=== PATIENT | male | born 1955 | race Caucasian/White ===

== ENCOUNTER 2017-07-31 09:20 | Day surgery (SDC) | payer BC ==
[~2017-07-31] VITALS: Ht 188 cm; Wt 94.2 kg
[2017-07-31] MEDS ORDERED: SYNTHROID 0.10.15 MG PO (09:41)
[2017-07-31] MEDS ORDERED: PROZAC 20MG20 MG PO (09:41)
[2017-07-31 09:56] VITALS: BP 127/82; PULSE 65; TEMP 98.1
[2017-07-31 11:22] VITALS: BP 116/70; PULSE 63; TEMP 98.3
[2017-07-31 11:35] VITALS: BP 120/63; PULSE 60
[2017-07-31] MEDS ORDERED: BENEFIBER (11:37)
[2017-07-31 11:50] VITALS: BP 120/63; PULSE 64
[2017-07-31 12:05] VITALS: BP 118/67; PULSE 62
[2017-07-31 12:29] VITALS: BP 101/78; PULSE 54
== END 2017-07-31 12:31 | disposition home or self-care (01) ==
LOC: SDCO 09:20
DX: K59.00 Constipation, unspecified (principal); K64.0 First degree hemorrhoids; K92.1 Melena
CPT/HCPCS: J2250; J2405; J3010; J7030

== ENCOUNTER → 2018-08-31 | Outpatient (CLI) | payer BC ==
[~2018-08-31] MED LIST: BENEFIBER; PROZAC 20MG20 MG PO; SYNTHROID 0.10.15 MG PO
[2018-08-31 17:15] LABS: BASO % 0.6 % (0.0-2.0); EOS # 0.4 (0.0-0.7); GRAN # 3.1 (1.4-6.5); GRAN % 56.5 % (42.2-75.2); HEMATOCRIT 46.2 % (42.0-52.0); HEMOGLOBIN 15.8 g/dl (13.5-18.0); LYMPH # 1.6 (1.2-3.4); LYMPH % 28.7 % (20.0-51.0); MEAN CELL VOLUME 100 fl (80.0-100.0); MEAN CORPUSCULAR HEMOGLOBIN 34 pg (27.0-31.0); MEAN CORPUSCULAR HGB CONC 34 g/dl (33.0-37.0); MEAN PLATELET VOLUME 9.7 fl (7.4-10.4); MONO # 0.4 (0.1-0.6); PLATELET COUNT 138 K/mm3 (130-400); REDCELL DISTRIBUTION WIDTH-CV 12.7 % (11.5-14.5)
== END ==
LOC: ZCOL.LAB 15:56
PROVIDERS: Family Medicine
DX: R53.83 Other fatigue (principal)